=== PATIENT | male | born 1970 | race Caucasian/White ===

== ENCOUNTER 2024-01-10 17:48 | Emergency (ER) | payer OTHER ==
[~2024-01-10] VITALS: Ht 177.8 cm; Wt 124.7 kg
[2024-01-10 18:06] VITALS: BP_SYST 160; PULSE 86; RESP 18; TEMP 98.1; O2SAT 97
[2024-01-10] MEDS: HYDROcodone/ACETAMIN 10-325 MG TAB PO ONE (18:52)
[2024-01-10] MEDS: KETOROLAC TROMETHAMINE 30 MG VIAL IM ONE (18:52)
[2024-01-10 20:19] LABS: BARBITURATE, URINE NEGATIVE (NEG <=200); BENZODIAZEPINE, URINE NEGATIVE (NEG <=150); CANNABINOID, URINE NEGATIVE (NEG <=50); COCAINE, URINE NEGATIVE (NEG <=150); METHAMPHETAMINES SCREEN,URINE NEGATIVE (NEG <=500); OPIATE, URINE POSITIVE (NEG <=100); PHENCYCLIDINE SCREEN,URINE NEGATIVE (NEG <=25); UR TRICYCLIC ANTIDEPRESSANTS NEGATIVE (NEG <=300); URINE AMPHETAMINE NEGATIVE (NEG <=500); URINE METHADONE NEGATIVE (NEG <=200); URINE OXYCODONE SCREEN NEGATIVE (NEG <=100)
[2024-01-10] MEDS ORDERED: TRAM50TA2 PO (21:51)
[2024-01-10] MEDS ORDERED: IBUP-1969 PO (21:51)
[2024-01-10] MEDS ORDERED: ACET-2634 PO (21:51)
[2024-01-10 22:16] VITALS: BP_SYST 119; PULSE 75; RESP 13; TEMP 97.9; O2SAT 95
== END 2024-01-10 22:16 | disposition home or self-care (01) ==
LOC: SED 17:48
DX: S00.03XA Contusion of scalp, initial encounter (principal); M54.2 Cervicalgia; M54.6 Pain in thoracic spine; Z79.899 Other long term (current) drug therapy; Z79.2 Long term (current) use of antibiotics; W01.0XXA Fall on same level from slipping, tripping and stumbling without subsequent striking against object, initial encounter; Y93.89 Activity, other specified; Y92.89 Other specified places as the place of occurrence of the external cause; Y99.8 Other external cause status
CPT/HCPCS: 99285; 70450; 80307; 36415; 71250; 72125; 96372; G0482; J1885